=== PATIENT | female | born 1975 | race Caucasian/White ===

== ENCOUNTER 2020-12-06 14:09 | Emergency (ER) | payer OTHER ==
[~2020-12-06 14:09] MED LIST: FLOMAX 0.4 MG0.4 MG PO; NORCO 5-325 TA1 EACH PO; ONDANSETRON ODT4 MG PO
[2020-12-06 15:47] LABS: BILIRUBIN NEGATIVE (NEGATIVE); BLOOD TRACE-INTACT Ery/uL (NEGATIVE); CLARITY CLEAR (CLEAR); COLOR YELLOW (YELLOW); GLUCOSE (U) NORMAL (NORMAL); LEUKOCYTES TRACE Leu/uL (NEGATIVE); NITRITE POSITIVE (NEGATIVE); PROTEIN NEGATIVE (NEGATIVE); SPECIFIC GRAVITY 1.015 (1.001-1.030); UROBILINOGEN 0.2 mg/dL (0.2-1.0); pH 7.5 (5.0-9.0)
[2020-12-06 15:53] LABS: BASOPHIL 0.5 % (0-2); EOSINOPHIL 0 % (0-5); HCT 43.4 % (37.0-47.0); HGB 13.6 g/dl (12.5-16.0); LYMPHOCYTE 13.8 % (15-48); MCHC 31.3 g/dL (32.0-36.0); MCV 89.5 fL (78.0-100.0); MONOCYTE 7.6 % (0-12); MPV 9.3 fL (6.0-9.5); NEUTROPHIL 77.5 % (41-80); NRBC 0; PLT 304 K/uL (150-400); RBC 4.85 M/uL (4.20-5.40); RDW 13.1 % (11.5-14.0); WBC 10.6 K/uL (4.0-10.5)
[2020-12-06 15:57] LABS: BACTERIA 3+; SQUAMOUS EPITHELIAL CELLS >50; URINARY WBC 20-50
[2020-12-06 16:18] LABS: ALBUMIN 3.7 g/dL (3.4-5.0); BILIRUBIN - TOTAL 0.6 mg/dL (0.2-1.0); BUN/CREAT RATIO (CALC) 12.5 RATIO; CREATININE 0.72 mg/dL (0.51-0.95); GLOBULIN (CALCULATION) 4.3 g/dL; POTASSIUM 3.9 mmol/L (3.5-5.1)
[2020-12-06] MEDS ORDERED: ZOFRAN4 M1 PO (18:30)
[2020-12-06] MEDS ORDERED: BACTRIM DS TAB1 EACH PO (18:30)
== END 2020-12-06 19:30 | disposition home or self-care (01) ==
LOC: FER 14:09
PROVIDERS: Nurse Practitioner Family
DX: N39.0 Urinary tract infection, site not specified (principal); N83.202 Unspecified ovarian cyst, left side; J45.909 Unspecified asthma, uncomplicated; Z87.442 Personal history of urinary calculi; Z98.890 Other specified postprocedural states
CPT/HCPCS: 36415; 80053; 81001; 85025; 87076; 87088; 87186; J0696; J1885; J2270; J2405; J7030; Q9967